=== PATIENT | female | born 1940 | race Caucasian/White ===

== ENCOUNTER 2019-03-18 15:08 | Inpatient (IN) ==
[2019-03-18] MEDS ORDERED: Naloxone 0.4 MG/ML INJ IVP PRN (17:01)
[2019-03-18] MEDS ORDERED: Ondansetron 4 MG/2 ML VIAL IVP PRN (17:01)
[2019-03-18] MEDS ORDERED: Ipratropium/Albuterol Neb 3 ML IH PRN (17:10)
[2019-03-18] MEDS ORDERED: 0.9 % Sodium Chloride 1,000 ML IVC SCH (17:15)
[2019-03-18 17:39] LABS: Basophils % 0.2 %; Hemoglobin 11.4 g/dL (11.5-15.4)
[2019-03-18 17:41] LABS: Hematocrit 32.7 % (35.3-44.9); Immature Granulocytes % 0.9 % (0-4); Immature Platelets 2.5 % (1.1-6.1); Lymphocytes # 0.2 K/mcL (0.6-4.6); Lymphocytes % 2.4 %; Mean Corpuscular HGB Conc 34.9 g/dL (31.6-35.5); Mean Corpuscular Hemoglobin 34.9 pg (28.0-33.3); Mean Platelet Volume 10.3 fL (9.4-12.4); Monocytes # 0.5 K/mcL (0.0-1.3); Monocytes % 4.5 %; Neutrophils # 9.3 K/mcL (1.6-8.9); Red Blood Count 3.27 M/mcL (3.82-4.97); Red Cell Distribution Width 13.4 % (11.5-14.5); White Blood Count 10.1 K/mcL (4.3-11.1)
[2019-03-18 18:02] LABS: Albumin 2.8 g/dL (3.5-5.7); Albumin/Globulin Ratio 0.8 (1.1-2.2); Bilirubin,Total 1.4 mg/dL (0.3-1.0); Calcium 8.2 mg/dL (8.6-10.3); Globulin 3.5 g/dL (2.4-3.5); Magnesium 1.2 mg/dL (1.6-2.6); Potassium 3.7 mEq/L (3.5-5.1); Total Protein 6.3 g/dL (6.4-8.9); Troponin I 1.28 ng/mL (< 0.04)
[2019-03-18 18:08] LABS: Platelet Count 73 K/mcL (140-400)
[2019-03-18] MEDS: Cefepime HCl 2,000 MG in Water for inj. (sterile) 20 ML IVP SCH (18:11)
[2019-03-18] MEDS ORDERED: *HR* Metoprolol 5 MG/5 ML VIAL IVP PRN (18:23)
[2019-03-18] MEDS ORDERED: *HR* Heparin 5,000 UNIT/ML VIAL IVP PRN ×2 (18:39)
[2019-03-18] MEDS ORDERED: *HR* Heparin 5,000 UNIT/ML VIAL IVP ONE (18:39)
[2019-03-18] MEDS ORDERED: Heparin 25,000 UNIT/250 ML D5W 25,000 UNIT/250 ML IV.SOLN IVC SCH (18:45)
[2019-03-18 19:17] LABS: Hematocrit 30.7 % (35.3-44.9); INR 2.1; Prothrombin Time 23.5 Seconds (9.4-12.1); Red Blood Count 3.07 M/mcL (3.82-4.97)
[2019-03-18 19:19] LABS: Hemoglobin 10.5 g/dL (11.5-15.4); Immature Platelets 2.6 % (1.1-6.1); Mean Corpuscular HGB Conc 34.2 g/dL (31.6-35.5); Mean Corpuscular Hemoglobin 34.2 pg (28.0-33.3); Red Cell Distribution Width 13.6 % (11.5-14.5); White Blood Count 9.4 K/mcL (4.3-11.1)
[2019-03-18] MEDS: Nystatin POWDER 30 GM BOTTLE TP SCH (22:18)
[2019-03-18] MEDS: lamoTRIgine 100 MG TABLET PO SCH (22:18)
[2019-03-19 01:05] LABS: Albumin 2.5 g/dL (3.5-5.7); Albumin/Globulin Ratio 0.8 (1.1-2.2); Bilirubin,Direct 0.4 mg/dL (0.0-0.2); Bilirubin,Indirect 0.6 mg/dL (0.0-1.0); Calcium 7.8 mg/dL (8.6-10.3); Globulin 3.1 g/dL (2.4-3.5); Magnesium 1.3 mg/dL (1.6-2.6); Total Protein 5.6 g/dL (6.4-8.9)
[2019-03-19 01:09] LABS: Basophils % 0.3 %; Hematocrit 28.7 % (35.3-44.9); Hemoglobin 10.2 g/dL (11.5-15.4); Immature Granulocytes % 0.6 % (0-4); Lymphocytes # 0.3 K/mcL (0.6-4.6); Lymphocytes % 5.4 %; Mean Corpuscular HGB Conc 35.5 g/dL (31.6-35.5); Mean Corpuscular Hemoglobin 35.1 pg (28.0-33.3); Mean Corpuscular Volume 98.6 fL (83.0-100.0); Monocytes # 0.4 K/mcL (0.0-1.3); Monocytes % 6.8 %; Neutrophils # 5.5 K/mcL (1.6-8.9); Red Blood Count 2.91 M/mcL (3.82-4.97); Red Cell Distribution Width 13.9 % (11.5-14.5); Segmented Neutrophils % 86.9 %; White Blood Count 6.3 K/mcL (4.3-11.1)
[2019-03-19 01:10] LABS: Platelet Count 64 K/mcL (140-400)
[2019-03-19 01:18] LABS: Thyroid Stimulating Hormone 1.413 mcIU/mL (0.340-5.600)
[2019-03-19 02:55] LABS: Estimated Average Glucose 91 mg/dl
[2019-03-19] MEDS ORDERED: *HR* Heparin 5,000 UNIT/ML VIAL IVP PRN ×2 (04:09)
[2019-03-19] MEDS ORDERED: *HR* Heparin 5,000 UNIT/ML VIAL IVP ONE (04:09)
[2019-03-19] MEDS ORDERED: *HR* HYDROmorphone 2 MG TABLET PO ONE (04:11)
[2019-03-19] MEDS: Cefepime HCl 2,000 MG in Water for inj. (sterile) 20 ML IVP SCH (05:12)
[2019-03-19] MEDS: Heparin 25,000 UNIT/250 ML D5W 25,000 UNIT/250 ML IV.SOLN IVC SCH (05:15)
[2019-03-19] MEDS: lamoTRIgine 100 MG TABLET PO SCH ×2 (07:51→20:33)
[2019-03-19] MEDS: Sucralfate 1 GM TABLET PO SCH ×2 (07:51→16:45)
[2019-03-19] MEDS: Nystatin POWDER 30 GM BOTTLE TP SCH ×3 (07:52→20:34)
[2019-03-19] MEDS ORDERED: Perflutren Lipid Microsphere 1.3 ML in 0.9 % Sodium Chloride 8.7 ML IVP ONE (08:56)
[2019-03-19] MEDS: *HR* HYDROcodone/Acet 7.5/325 mg TABLET PO PRN ×2 (11:29→20:33)
[2019-03-19] MEDS: Cefepime HCl 1,000 MG in Water for inj. (sterile) 10 ML IVP SCH (16:46)
[2019-03-19] MEDS ORDERED: Cefepime HCl 1,000 MG in Water for inj. (sterile) 20 ML IVP SCH (18:00)
[2019-03-19] MEDS: 0.9 % Sodium Chloride 1,000 ML IVC SCH (20:33)
[2019-03-19] MEDS ORDERED: Sucralfate 1 GM TABLET PO SCH (21:00)
[2019-03-19 21:16] LABS: Bilirubin,Urine Negative (Negative); Blood,Urine Moderate (Negative); Clarity,Urine Cloudy (Clear); Color,Urine Yellow (Yellow); Glucose,Urine (UA) Normal (Normal); Ketones,Urine Negative (Negative); Leukocyte Esterase,Urine Large (Negative); Nitrite,Urine Negative (Negative); Protein,Urine 30 mg/dL (Neg-Trace); Specific Gravity,Urine 1.016 (1.010-1.025); Urobilinogen,Urine Normal (Normal)
[2019-03-19 21:19] LABS: Bacteria,Urine None Seen per hpf (None-Few); Hyaline Casts,Urine None Seen per lpf (None-Few); Squamous Epithelial Cell,Urine Many per lpf (None-Few); WBC,Urine TNTC per hpf (0-3)
[2019-03-20] MEDS: Heparin 25,000 UNIT/250 ML D5W 25,000 UNIT/250 ML IV.SOLN IVC SCH (01:05)
[2019-03-20 02:44] LABS: Basophils % 0.6 %; Immature Granulocytes % 0.3 % (0-4)
[2019-03-20 02:46] LABS: Eosinophils % 0.9 %; Hematocrit 27.5 % (35.3-44.9); Hemoglobin 9.7 g/dL (11.5-15.4); Immature Platelets 6.5 % (1.1-6.1); Lymphocytes # 0.5 K/mcL (0.6-4.6); Lymphocytes % 14.8 %; Mean Corpuscular HGB Conc 35.3 g/dL (31.6-35.5); Mean Corpuscular Hemoglobin 34.6 pg (28.0-33.3); Mean Corpuscular Volume 98.2 fL (83.0-100.0); Monocytes # 0.3 K/mcL (0.0-1.3); Monocytes % 9.9 %; Neutrophils # 2.4 K/mcL (1.6-8.9); Platelet Count 48 K/mcL (140-400); Red Cell Distribution Width 14.1 % (11.5-14.5); Segmented Neutrophils % 73.5 %; White Blood Count 3.3 K/mcL (4.3-11.1)
[2019-03-20 03:04] LABS: Calcium 7.6 mg/dL (8.6-10.3); Magnesium 1.8 mg/dL (1.6-2.6); Potassium 3.9 mEq/L (3.5-5.1)
[2019-03-20 03:05] LABS: Albumin 2.5 g/dL (3.5-5.7); Albumin/Globulin Ratio 0.8 (1.1-2.2); Bilirubin,Total 0.8 mg/dL (0.3-1.0); Calcium 7.6 mg/dL (8.6-10.3); Globulin 3.3 g/dL (2.4-3.5); Potassium 3.9 mEq/L (3.5-5.1); Total Protein 5.8 g/dL (6.4-8.9)
[2019-03-20] MEDS: *HR* HYDROcodone/Acet 7.5/325 mg TABLET PO PRN ×2 (04:16→13:01)
[2019-03-20] MEDS: Cefepime HCl 1,000 MG in Water for inj. (sterile) 10 ML IVP SCH ×2 (06:09→18:02)
[2019-03-20] MEDS: lamoTRIgine 100 MG TABLET PO SCH (09:26)
[2019-03-20] MEDS: Sucralfate 1 GM TABLET PO SCH ×2 (09:26→18:03)
[2019-03-20] MEDS: Loratadine 10 MG TABLET PO SCH (09:27)
[2019-03-20] MEDS: Nystatin POWDER 30 GM BOTTLE TP SCH ×3 (09:27→21:20)
[2019-03-20] MEDS: Ascorbic Acid 500 MG TABLET PO SCH (09:27)
[2019-03-20] MEDS: Cholecalciferol (D-3) 1,000 UNIT (25MCG) TABLET PO SCH (09:27)
[2019-03-20 15:03] LABS: Hematocrit 29.5 % (35.3-44.9); Hemoglobin 10.2 g/dL (11.5-15.4)
[2019-03-20] MEDS: 0.9 % Sodium Chloride 1,000 ML IVC SCH (18:01)
[2019-03-20] MEDS: *HR* Rivaroxaban 15 MG TABLET PO SCH (18:03)
[2019-03-20] MEDS: Acetaminophen 325 MG TABLET PO PRN (18:03)
[2019-03-21] MEDS: *HR* HYDROcodone/Acet 7.5/325 mg TABLET PO PRN ×3 (00:25→18:11)
[2019-03-21 02:37] LABS: Immature Granulocytes % 0.4 % (0-4); Red Cell Distribution Width 14.1 % (11.5-14.5)
[2019-03-21 02:39] LABS: Basophils % 0.7 %; Eosinophils # 0.1 K/mcL (0.0-0.6); Hematocrit 27.9 % (35.3-44.9); Hemoglobin 9.5 g/dL (11.5-15.4); Immature Platelets 4.3 % (1.1-6.1); Lymphocytes # 0.5 K/mcL (0.6-4.6); Lymphocytes % 19.1 %; Mean Corpuscular HGB Conc 34.1 g/dL (31.6-35.5); Mean Corpuscular Hemoglobin 33.7 pg (28.0-33.3); Mean Corpuscular Volume 98.9 fL (83.0-100.0); Mean Platelet Volume 10.9 fL (9.4-12.4); Monocytes # 0.3 K/mcL (0.0-1.3); Monocytes % 10.1 %; Neutrophils # 1.8 K/mcL (1.6-8.9); Red Blood Count 2.82 M/mcL (3.82-4.97); Segmented Neutrophils % 66.7 %; White Blood Count 2.7 K/mcL (4.3-11.1)
[2019-03-21 02:41] LABS: Platelet Count 44 K/mcL (140-400)
[2019-03-21 02:54] LABS: Calcium 7.7 mg/dL (8.6-10.3); Magnesium 1.7 mg/dL (1.6-2.6); Potassium 3.8 mEq/L (3.5-5.1)
[2019-03-21] MEDS: Cefepime HCl 1,000 MG in Water for inj. (sterile) 10 ML IVP SCH ×2 (04:45→17:06)
[2019-03-21] MEDS ORDERED: *HR* HYDROcodone/Acet 5/325 mg TABLET PO ONE (05:09)
[2019-03-21] MEDS: Sucralfate 1 GM TABLET PO SCH ×2 (09:52→17:06)
[2019-03-21] MEDS: Cholecalciferol (D-3) 1,000 UNIT (25MCG) TABLET PO SCH (09:52)
[2019-03-21] MEDS: Ascorbic Acid 500 MG TABLET PO SCH (09:52)
[2019-03-21] MEDS: Loratadine 10 MG TABLET PO SCH (09:53)
[2019-03-21] MEDS: Nystatin POWDER 30 GM BOTTLE TP SCH ×2 (09:54→16:12)
[2019-03-21 16:01] LABS: Immature Reticulocyte % 12.2 % (11.0-38.0); Retculocyte # 0.06 M/mcL (0.05-0.10)
[2019-03-21 16:39] LABS: % Iron Saturation 39 % (15-50); Alanine Aminotransferase 11 Units/L (7-52); Albumin 2.7 g/dL (3.5-5.7); Albumin/Globulin Ratio 0.8 (1.1-2.2); Alkaline Phosphatase 77 Units/L (34-104); Aspartate Amino Transferase 36 Units/L (13-39); BUN/Creatinine Ratio 27 (6-26); Bilirubin,Total 0.6 mg/dL (0.3-1.0); Blood Urea Nitrogen 28 mg/dL (8-23); Calcium 8.1 mg/dL (8.6-10.3); Carbon Dioxide 21 mEq/L (23-29); Chloride 107 mEq/L (98-107); Globulin 3.4 g/dL (2.4-3.5); Glucose 93 mg/dL (70-105); Iron 67 mcg/dL (50-170); Lactate Dehydrogenase 213 Units/L (140-271); Osmolality,Calculated 281 (280-300); Potassium 4.2 mEq/L (3.5-5.1); Sodium 133 mEq/L (136-145); Total Protein 6.1 g/dL (6.4-8.9); Transferrin 122 mg/dL (203-362); Uric Acid 6.9 mg/dL (2.3-7.6); eGFR For African Americans > 60 (> 60); eGFR For Non-African Americans 51 (> 60)
[2019-03-21 16:45] LABS: Folate 6.5 ng/mL (3.0-16.0)
[2019-03-21] MEDS: *HR* Rivaroxaban 15 MG TABLET PO SCH (17:06)
[2019-03-21] MEDS: 0.9 % Sodium Chloride 1,000 ML IVC SCH (20:13)
[2019-03-22] MEDS: *HR* HYDROcodone/Acet 7.5/325 mg TABLET PO PRN ×3 (01:36→17:01)
[2019-03-22 01:51] LABS: Hemoglobin 9.8 g/dL (11.5-15.4); Mean Corpuscular Volume 97.2 fL (83.0-100.0); White Blood Count 2.6 K/mcL (4.3-11.1)
[2019-03-22 01:53] LABS: Basophils % 0.4 %; Eosinophils # 0.1 K/mcL (0.0-0.6); Eosinophils % 4.6 %; Hematocrit 27.5 % (35.3-44.9); Immature Granulocytes % 0.4 % (0-4); Immature Platelets 4.4 % (1.1-6.1); Lymphocytes # 0.7 K/mcL (0.6-4.6); Mean Corpuscular HGB Conc 35.6 g/dL (31.6-35.5); Mean Corpuscular Hemoglobin 34.6 pg (28.0-33.3); Mean Platelet Volume 11.2 fL (9.4-12.4); Monocytes # 0.3 K/mcL (0.0-1.3); Monocytes % 10.8 %; Neutrophils # 1.5 K/mcL (1.6-8.9); Red Blood Count 2.83 M/mcL (3.82-4.97); Segmented Neutrophils % 56.8 %
[2019-03-22 01:56] LABS: Platelet Count 37 K/mcL (140-400)
[2019-03-22] MEDS: Nystatin POWDER 30 GM BOTTLE TP SCH ×4 (02:41→21:49)
[2019-03-22] MEDS: Cefepime HCl 1,000 MG in Water for inj. (sterile) 10 ML IVP SCH ×2 (05:11→18:42)
[2019-03-22 07:41] LABS: BUN/Creatinine Ratio 24 (6-26); Blood Urea Nitrogen 24 mg/dL (8-23); Calcium 7.7 mg/dL (8.6-10.3); Carbon Dioxide 22 mEq/L (23-29); Chloride 105 mEq/L (98-107); Glucose 86 mg/dL (70-105); Magnesium 1.7 mg/dL (1.6-2.6); Osmolality,Calculated 291 (280-300); Potassium 4.3 mEq/L (3.5-5.1); Sodium 139 mEq/L (136-145); eGFR For African Americans > 60 (> 60); eGFR For Non-African Americans 53 (> 60)
[2019-03-22] MEDS: Sucralfate 1 GM TABLET PO SCH ×2 (08:54→16:12)
[2019-03-22] MEDS: Ascorbic Acid 500 MG TABLET PO SCH (08:55)
[2019-03-22] MEDS: Cholecalciferol (D-3) 1,000 UNIT (25MCG) TABLET PO SCH (08:55)
[2019-03-22] MEDS: Loratadine 10 MG TABLET PO SCH (08:55)
[2019-03-22] MEDS ORDERED: 0.9 % Sodium Chloride 250 ML ONE ×2 (12:30→15:30)
[2019-03-22] MEDS: *HR* Rivaroxaban 15 MG TABLET PO SCH (16:12)
[2019-03-23] MEDS: *HR* HYDROcodone/Acet 7.5/325 mg TABLET PO PRN ×4 (01:09→21:46)
[2019-03-23 02:48] LABS: Immature Granulocytes % 0.7 % (0-4); Mean Corpuscular Volume 100.4 fL (83.0-100.0); Mean Platelet Volume 10.4 fL (9.4-12.4)
[2019-03-23 02:50] LABS: Basophils % 0.3 %; Eosinophils # 0.2 K/mcL (0.0-0.6); Eosinophils % 6.4 %; Hematocrit 27.1 % (35.3-44.9); Immature Platelets 2.8 % (1.1-6.1); Lymphocytes # 0.7 K/mcL (0.6-4.6); Lymphocytes % 24.2 %; Mean Corpuscular HGB Conc 33.2 g/dL (31.6-35.5); Mean Corpuscular Hemoglobin 33.3 pg (28.0-33.3); Monocytes # 0.4 K/mcL (0.0-1.3); Monocytes % 13.1 %; Red Cell Distribution Width 14.1 % (11.5-14.5); Segmented Neutrophils % 55.3 %
[2019-03-23 02:52] LABS: Neutrophils # 1.7 K/mcL (1.6-8.9); Platelet Count 70 K/mcL (140-400)
[2019-03-23 03:04] LABS: BUN/Creatinine Ratio 21 (6-26); Blood Urea Nitrogen 20 mg/dL (8-23); Calcium 8.1 mg/dL (8.6-10.3); Carbon Dioxide 25 mEq/L (23-29); Chloride 108 mEq/L (98-107); Glucose 93 mg/dL (70-105); Magnesium 1.5 mg/dL (1.6-2.6); Osmolality,Calculated 290 (280-300); Potassium 3.9 mEq/L (3.5-5.1); Sodium 139 mEq/L (136-145); eGFR For African Americans > 60 (> 60); eGFR For Non-African Americans 58 (> 60)
[2019-03-23] MEDS: 0.9 % Sodium Chloride 1,000 ML IVC SCH (05:40)
[2019-03-23] MEDS: Cefepime HCl 1,000 MG in Water for inj. (sterile) 10 ML IVP SCH ×2 (05:40→16:50)
[2019-03-23] MEDS: Acetaminophen 325 MG TABLET PO PRN ×2 (05:47→18:10)
[2019-03-23] MEDS: Sucralfate 1 GM TABLET PO SCH ×2 (08:51→16:50)
[2019-03-23] MEDS: Ascorbic Acid 500 MG TABLET PO SCH (08:52)
[2019-03-23] MEDS: Loratadine 10 MG TABLET PO SCH (08:52)
[2019-03-23] MEDS: Cholecalciferol (D-3) 1,000 UNIT (25MCG) TABLET PO SCH (08:52)
[2019-03-23] MEDS: Nystatin POWDER 30 GM BOTTLE TP SCH ×3 (09:00→21:46)
[2019-03-23] MEDS: Lactobacillus 1 EACH CAP.SPRINK PO SCH ×2 (14:46→21:46)
[2019-03-23 16:35] LABS: Hematocrit 27.8 % (35.3-44.9); Hemoglobin 9.5 g/dL (11.5-15.4)
[2019-03-24] MEDS: *HR* HYDROcodone/Acet 7.5/325 mg TABLET PO PRN ×2 (04:07→11:48)
[2019-03-24 04:54] LABS: Hematocrit 27.5 % (35.3-44.9); Red Cell Distribution Width 14.1 % (11.5-14.5)
[2019-03-24 04:57] LABS: Eosinophils # 0.3 K/mcL (0.0-0.6); Eosinophils % 8.3 %; Hemoglobin 8.9 g/dL (11.5-15.4); Immature Platelets 2.7 % (1.1-6.1); Lymphocytes # 1.2 K/mcL (0.6-4.6); Lymphocytes % 31.1 %; Mean Corpuscular HGB Conc 32.4 g/dL (31.6-35.5); Mean Corpuscular Hemoglobin 33.6 pg (28.0-33.3); Mean Corpuscular Volume 103.8 fL (83.0-100.0); Mean Platelet Volume 10.3 fL (9.4-12.4); Monocytes # 0.4 K/mcL (0.0-1.3); Monocytes % 8.8 %; Red Blood Count 2.65 M/mcL (3.82-4.97); Segmented Neutrophils % 49.8 %
[2019-03-24 05:00] LABS: Platelet Count 93 K/mcL (140-400)
[2019-03-24 05:14] LABS: BUN/Creatinine Ratio 19 (6-26); Blood Urea Nitrogen 16 mg/dL (8-23); Calcium 8.4 mg/dL (8.6-10.3); Carbon Dioxide 25 mEq/L (23-29); Chloride 105 mEq/L (98-107); Glucose 108 mg/dL (70-105); Magnesium 1.8 mg/dL (1.6-2.6); Osmolality,Calculated 294 (280-300); Potassium 3.8 mEq/L (3.5-5.1); Sodium 141 mEq/L (136-145); eGFR For African Americans > 60 (> 60); eGFR For Non-African Americans > 60 (> 60)
[2019-03-24] MEDS: Cefepime HCl 1,000 MG in Water for inj. (sterile) 10 ML IVP SCH (06:46)
[2019-03-24] MEDS: Loratadine 10 MG TABLET PO SCH (09:16)
[2019-03-24] MEDS: Lactobacillus 1 EACH CAP.SPRINK PO SCH (09:16)
[2019-03-24] MEDS: Sucralfate 1 GM TABLET PO SCH ×2 (09:16→16:46)
[2019-03-24] MEDS: Ascorbic Acid 500 MG TABLET PO SCH (09:17)
[2019-03-24] MEDS: Cholecalciferol (D-3) 1,000 UNIT (25MCG) TABLET PO SCH (09:17)
[2019-03-24] MEDS: Nystatin POWDER 30 GM BOTTLE TP SCH ×2 (09:18→16:46)
[2019-03-24 10:34] LABS: % Iron Saturation 39 % (15-50); Iron 78 mcg/dL (50-170); Transferrin 143 mg/dL (203-362)
[2019-03-24 11:42] LABS: ANA IgG by ELISA DETECTED (None Detected)
[2019-03-24 11:43] LABS: Immunoglobulin A 813 mg/dL (68-408); Immunoglobulin G 1420 mg/dL (768-1632); Immunoglobulin M 124 mg/dL (35-263)
[2019-03-24 12:00] VITALS: BP 158/75
[2019-03-25 13:32] LABS: Alpha 2 Globulin (PEP) 0.57 g/dL (0.48-1.05); Beta Globulin (PEP) 0.97 g/dL (0.48-1.10)
[2019-03-25 13:33] LABS: IFE Reflexed NOT DONE
[2019-03-26 20:04] LABS: ANA HEp-2 IgG IFA DETECTED (<1:80); Anti Nuclear Ab Pattern CENTROMERE
== END 2019-03-24 17:22 | DRG 871 ==
LOC: 2NENU → SUATTDRO 16:35
PROVIDERS: ADMIT Pharmacist; ATTEND Pharmacist